=== PATIENT | female | born 2005 | race Caucasian/White ===

== ENCOUNTER 2024-12-22 15:56 | Emergency (ER) | payer SELFPAY ==
[~2024-12-22] VITALS: Ht 177.8 cm; Wt 57.3 kg
[2024-12-22 16:03] VITALS: BP 129/83; PULSE 113; RESP 18; TEMP 97.7; O2SAT 98
[2024-12-22 16:32] LABS: PLATELET COUNT (AUTO) 250 K/uL (150-450); RED BLOOD CELL COUNT(AUTO) 4.51 MIL/uL (4.00-5.20); RED CELL DISTRIBUTION WIDTH 12.4 % (11.5-14.5); WHITE BLOOD COUNT (AUTO) 5.5 K/uL (4.5-11.0)
[2024-12-22 16:40] LABS: CALCIUM, TOTAL 8.8 mg/dL (8.8-10.5); CREATININE 0.67 mg/dL (0.60-1.30); GLOMERULAR FILTR. RATE CALC > 60 mL/min (>60); GLUCOSE,RANDOM 93 mg/dL (70-110); SODIUM SERUM 140 mmol/L (136-145); UREA NITROGEN, BLOOD 12 mg/dL (7-18)
[2024-12-22 16:45] LABS: ASPARTATE AMINOTRANSFERASE 17.0 U/L (15-37); TOTAL PROTEIN, SERUM 7.8 g/dL (6.4-8.2)
[2024-12-22 17:27] LABS: APPEARANCE,URINE HAZY (CLEAR); GLUCOSE, URINE (UA) NEGATIVE (NEGATIVE); LEUKOCYTE ESTERASE ,URINE SMALL (NEGATIVE); NITRATE,URINE NEGATIVE (NEGATIVE); OCCULT BLOOD,URINE LARGE (NEGATIVE); PH,URINE DRUG SCREEN 5.0 (5.0-8.0); SPECIFIC GRAVITIY, URINE 1.026 (1.003-1.030)
[2024-12-22 17:35] LABS: ALCOHOL, URINE DRUG SCREEN NEGATIVE (NEGATIVE); AMPHET/METH SCREEN,URINE NEGATIVE (NEGATIVE); BARBITURATE SCREEN, URINE NEGATIVE (NEGATIVE); CANNABINOID SCREEN,URINE POSITIVE (NEGATIVE); COCAINE SCREEN,URINE NEGATIVE (NEGATIVE); METHADONE SCREEN, URINE NEGATIVE (NEGATIVE)
[2024-12-22 17:48] LABS: SQUAMOUS EPITHELIAL CELL,UR Few /LPF (None Seen)
[2024-12-22] MEDS ORDERED: METO5TAB95 PO (18:34)
== END 2024-12-22 18:57 | disposition home or self-care (01) ==
LOC: EMS 15:56
DX: K52.9 Noninfective gastroenteritis and colitis, unspecified (principal); R10.9 Unspecified abdominal pain; F17.210 Nicotine dependence, cigarettes, uncomplicated; F12.90 Cannabis use, unspecified, uncomplicated; R51.9 Headache, unspecified; R11.2 Nausea with vomiting, unspecified; G47.30 Sleep apnea, unspecified
CPT/HCPCS: 80048; 80076; 80307; 81001; 84703; 85025; 87086; 99283

== ENCOUNTER 2025-02-12 11:55 | Emergency (ER) | payer SELFPAY ==
[~2025-02-12] VITALS: Ht 175.3 cm; Wt 57.6 kg
[~2025-02-12 11:55] MED LIST: METO5TAB95 PO
[2025-02-12] MEDS ORDERED: ONDA-104 PO (12:17)
[2025-02-12] MEDS ORDERED: ACET-3385 PO (12:17)
[2025-02-12] MEDS: PROPARACAINE HCL 0.5% 15 ML OPHTHALMIC SOLUTION OU ONE (14:26)
[2025-02-12] MEDS: FLUORESCEIN SODIUM 1 MG STRIP OU ONE (14:26)
[2025-02-12] MEDS ORDERED: KETO-108 OU (14:59)
[2025-02-12] MEDS ORDERED: OFLO5DRO49 OU (14:59)
[2025-02-12 15:02] VITALS: BP 122/68; PULSE 84; RESP 18; TEMP 98.6; O2SAT 100
== END 2025-02-12 15:17 | disposition home or self-care (01) ==
LOC: EMS 11:56
DX: S05.02XA Injury of conjunctiva and corneal abrasion without foreign body, left eye, initial encounter (principal); S05.01XA Injury of conjunctiva and corneal abrasion without foreign body, right eye, initial encounter; F12.90 Cannabis use, unspecified, uncomplicated; F17.210 Nicotine dependence, cigarettes, uncomplicated; Z79.899 Other long term (current) drug therapy; X58.XXXA Exposure to other specified factors, initial encounter; Y93.89 Activity, other specified; Y92.89 Other specified places as the place of occurrence of the external cause; Y99.8 Other external cause status
CPT/HCPCS: 99283